=== PATIENT | female | born 1980 | race Caucasian/White ===

== ENCOUNTER 2016-03-13 11:40 | Emergency (ER) | payer SELFPAY ==
[2016-03-13 11:53] VITALS: TEMP 98.3; BMI 37.8
[2016-03-13] MEDS ORDERED: PROMETHAZINE 25 MG/ML VIAL IV ONE (12:08)
[2016-03-13] MEDS ORDERED: MORPHINE 4 MG/ML INJECTION IV ONE (12:08)
--- NOTE | 2016-03-13 12:12 | EDPRACDOC ---
- General Information Chief Complaint: Abdominal Pain Stated Complaint: ABDOMINAL PAIN Time Seen by Provider: 03/13/16 12:03 Information Source: Patient Mode Of Arrival: Car Home Medications: Home Medications Losartan/Hydrochlorothiazide [Losartan-Hctz 100-25 mg Tab] 1 each PO DAILY 01/26 Hydrocodone Bit/Acetaminophen [Hydrocodon-Acetaminophen 5-325] 1 - 2 tab PO Q6H PRN #20 tab 03/13/16 Allergies/Adverse Reactions: Allergies Allergy/AdvReac Type Severity Reaction Status Date / Time Penicillins Allergy Severe Rash-Genera Verified 03/13/16 11:53 lized - History of Present Illness Onset: 2+ WEEKS Pain Location: Reports: RUQ Pain Context: Reports: Spontaneous Pain Severity: Moderate Pain Quality: Reports: Aching, Burning, Colicky Pain Radiation: Reports: No Radiation : No (TUBAL) Female Abdominal History: Reports: Similar Pain (dx) (FOR YEARS: 2011 RUQ US WNL , HIDA 29%, NONOPERATIVE MANAGEMENT) Modifying Factors: improves with: Food Female Associated Signs & Symptoms: Reports: Nausea. Denies: Vomiting, Hematemesis, Anorexia, Diarrhea, Melena, Dysuria, Fever, Urgency, Hematuria, Chills Oral Intake: Normal Urinary Output: Normal ED Past Medical History - History Reviewed Yes Nurses notes reviewed and agree except as marked - Patient Medical History Neurological History: Denies: Cerebrovascular Accident Cardiac History: Reports: Hypertension Psychological History: Denies: Depression Systemic History: Denies: Diabetes Additional Past Surgical History: BTL - Social Medical History Smoking Status: Never smoker EDM Review of Systems - Review of Systems ROS Negative Except as Marked: Yes All systems reviewed and were negative except as marked - Physical Exam Constitutional: Alert (Awake), No apparent distress Oriented to: Time, Person, Place Last recorded Vital Signs: Last Vital Signs Temp 98.3 F 03/13/16 11:49 Pulse 85 03/13/16 11:49 Resp 18 03/13/16 11:49 BP 154/85 03/13/16 11:49 Pulse Ox 100 03/13/16 11:49 Oxygen Pulse Oxygen Saturation 100 O2 Device Room Air Oxygen Flow Rate Fraction of Inspired Oxygen ( FIO2) - HEENT Head: Normal ( normocephalic) Eye Exam: Normal (PERRL, EOMI, Sclera white). negative: Pale Conjunctiva, Scleral Icterus Oropharynx: Normal (Pharynx:Moist without exudate,Gums-no swelling). negative: Membranes Dry TMJ: Normal Nose: No Symptoms Reported (septum midline) Neck: Normal (FROM, trachea at midline) - Respiratory/Cardiovascular Respiratory: Normal - CTA (BBS clear to auscultation without adventitious sounds ) Cardiovascular: Normal (RRR without murmur, gallop or rub) - GI Auscultation: Normal (NABS) Palpation: Normal (Soft,No rebound or guarding, non distended) Tenderness: Non tender Erazo's Sign: Negative - Musculoskeletal Back: Normal (Non-Tender) Extremities: Normal (Normal tone, Pulses 2+ No cyanosis or edema, FROM) - Integumentary Skin: Normal, Warm, Dry Lymphatics: Normal (no adenopathy) - Neurologic Memory Impaired: Normal Motor Function: Normal (Normal tone, Pulses 2+ No cyanosis or edema, FROM) Cranial Nerve: Normal (CN II-X11 intact sensation, strength 5/5) Cerebellar: Normal Mood Description: Normal Perception: Normal - Results 03/13/16 12:00 03/13/16 12:00 WBC 8.1 xk/uL (3.8-10.8) 03/13/16 12:00 RBC 4.98 xM/uL (4.20-5.40) 03/13/16 12:00 Hgb 14.1 g/dL (12.0-16.0) 03/13/16 12:00 Hct 42.4 % (36-47) 03/13/16 12:00 MCV 85 fL (81-99) 03/13/16 12:00 MCH 28.3 pg (27-32) 03/13/16 12:00 MCHC 33.3 g/dl (33-36) 03/13/16 12:00 RDW 14.1 % (11.5-14.5) 03/13/16 12:00 Plt Count 315 xk/uL (130-400) 03/13/16 12:00 MPV 9.2 fL (7.4-10.4) 03/13/16 12:00 Neut % (Auto) Cancelled 03/13/16 12:00 Lymph % (Auto) Cancelled 03/13/16 12:00 Gove % (Auto) Cancelled 03/13/16 12:00 Eos % (Auto) Cancelled 03/13/16 12:00 Baso % (Auto) Cancelled 03/13/16 12:00 Absolute Neuts (auto) Cancelled 03/13/16 12:00 Absolute Lymphs (auto) Cancelled 03/13/16 12:00 Seg Neuts % (Manual) 42 % (45-76) L 03/13/16 12:00 Band Neutrophils % 13 % (0-5) H 03/13/16 12:00 Lymphocytes % (Manual) 23 % (17-44) 03/13/16 12:00 Monocytes % (Manual) 15 % (0-10) H 03/13/16 12:00 Eosinophils % (Manual) 6 % (0-5) H 03/13/16 12:00 Myelocytes % 1 % (0) H 03/13/16 12:00 Absolute Neutrophils 4.46 xk/uL (1.7-8.2) 03/13/16 12:00 Absolute Lymphocytes 1.86 xk/uL (0.65-4.75) 03/13/16 12:00 Vacuolated Neuts Few 03/13/16 12:00 Atypical Lymphocytes Occ 03/13/16 12:00 Platelet Estimate Norm (NORMAL) Large plts present (NORMAL) 03/13/16 12: 00 Platelet Estimate Norm (NORMAL) Large plts present (NORMAL) 03/13/16 12: 00 RBC Morphology 1+ macro 1+ aniso 03/13/16 12:00 RBC Morphology 1+ macro 1+ aniso 03/13/16 12:00 D-Dimer Quant (PE/DVT) 289 ng/mL (<500) 03/13/16 12:00 Sodium 143 mEq/L (137-146) 03/13/16 12:00 Potassium 3.9 mEq/L (3.5-5.1) 03/13/16 12:00 Chloride 105 mEq/L (98-107) 03/13/16 12:00 Carbon Dioxide 26 mMOL/L (22-33) 03/13/16 12:00 Anion Gap 16 mEq/L (8-16) 03/13/16 12:00 BUN 15 MG/DL (7-17) 03/13/16 12:00 Creatinine 0.80 MG/DL (0.52-1.04) 03/13/16 12:00 Estimated GFR (MDRD) > 60 mL/min (>=60) 03/13/16 12:00 Glucose 92 MG/DL (70-99) 03/13/16 12:00 Calculated Osmolality 276 MOs/Kg (270-290) 03/13/16 12:00 Calcium 9.3 MG/DL (8.4-10.2) 03/13/16 12:00 Total Bilirubin 0.5 MG/DL (0.2-1.3) 03/13/16 12:00 AST 37 IU/L (14-36) H 03/13/16 12:00 ALT 66 IU/L (9-52) H 03/13/16 12:00 Alkaline Phosphatase 55 IU/L (38-126) 03/13/16 12:00 Total Protein 7.8 G/DL (6.3-8.2) 03/13/16 12:00 Albumin 4.6 G/DL (3.5-5.0) 03/13/16 12:00 Lipase 127 U/L (23-300) 03/13/16 12:00 Urine Color Yellow 03/13/16 12:00 Urine Clarity Sl hzy 03/13/16 12:00 Urine pH 6.0 (5.0-8.0) 03/13/16 12:00 Ur Specific [place] 1.015 (1.003-1.035) 03/13/16 12:00 Urine Protein Neg (NEG/TRACE) 03/13/16 12:00 Urine Glucose (UA) Neg (NEGATIVE) 03/13/16 12:00 Urine Ketones Neg (NEGATIVE) 03/13/16 12:00 Urine Occult Blood Neg (NEG/TRACE) 03/13/16 12:00 Urine Nitrite Neg (NEGATIVE) 03/13/16 12:00 Urine Bilirubin Neg (NEGATIVE) 03/13/16 12:00 Urine Urobilinogen <2.0 MG/DL (0-1) 03/13/16 12:00 Ur Leukocyte Esterase Neg (NEGATIVE) 03/13/16 12:00 Urine RBC 0-2 (0-5) 03/13/16 12:00 Urine WBC 0-2 (0-5) 03/13/16 12:00 Ur Epithelial Cells 2+ 03/13/16 12:00 Urine Bacteria Few (NEG/FEW) 03/13/16 12:00 Urine Mucus Mod (NEG/OCC) H 03/13/16 12:00 Lab Results 03/13/16 03/13/16 03/13/16 12:00 12:00 12:00 WBC 8.1 RBC 4.98 Hgb 14.1 Hct 42.4 MCV 85 MCH 28.3 MCHC 33.3 RDW 14.1 Plt Count 315 MPV 9.2 Neut % (Auto) Cancelled Lymph % (Auto) Cancelled Gove % (Auto) Cancelled Eos % (Auto) Cancelled Baso % (Auto) Cancelled Absolute Neuts (auto) Cancelled Absolute Lymphs (auto) Cancelled Seg Neuts % (Manual) 42 L Band Neutrophils % 13 H Lymphocytes % (Manual) 23 Monocytes % (Manual) 15 H Eosinophils % (Manual) 6 H Myelocytes % 1 H Absolute Neutrophils 4.46 Absolute Lymphocytes 1.86 Vacuolated Neuts Few Atypical Lymphocytes Occ Platelet Estimate Large plts present RBC Morphology 1+ aniso D-Dimer Quant (PE/DVT) 289 Sodium Potassium Chloride Carbon Dioxide Anion Gap BUN Creatinine Estimated GFR (MDRD) Glucose Calculated Osmolality Calcium Total Bilirubin AST ALT Alkaline Phosphatase Total Protein Albumin Lipase Urine Color Yellow Urine Clarity Sl hzy Urine pH 6.0 Ur Specific [place] 1.015 Urine Protein Neg Urine Glucose (UA) Neg Urine Ketones Neg Urine Occult Blood Neg Urine Nitrite Neg Urine Bilirubin Neg Urine Urobilinogen <2.0 Ur Leukocyte Esterase Neg Urine RBC 0-2 Urine WBC 0-2 Ur Epithelial Cells 2+ Urine Bacteria Few Urine Mucus Mod H 03/13/16 12:00 WBC RBC Hgb Hct MCV MCH MCHC RDW Plt Count MPV Neut % (Auto) Lymph % (Auto) Gove % (Auto) Eos % (Auto) Baso % (Auto) Absolute Neuts (auto) Absolute Lymphs (auto) Seg Neuts % (Manual) Band Neutrophils % Lymphocytes % (Manual) Monocytes % (Manual) Eosinophils % (Manual) Myelocytes % Absolute Neutrophils Absolute Lymphocytes Vacuolated Neuts Atypical Lymphocytes Platelet Estimate RBC Morphology D-Dimer Quant (PE/DVT) Sodium 143 Potassium 3.9 Chloride 105 Carbon Dioxide 26 Anion Gap 16 BUN 15 Creatinine 0.80 Estimated GFR (MDRD) > 60 Glucose 92 Calculated Osmolality 276 Calcium 9.3 Total Bilirubin 0.5 AST 37 H ALT 66 H Alkaline Phosphatase 55 Total Protein 7.8 Albumin 4.6 Lipase 127 Urine Color Urine Clarity Urine pH Ur Specific [place] Urine Protein Urine Glucose (UA) Urine Ketones Urine Occult Blood Urine Nitrite Urine Bilirubin Urine Urobilinogen Ur Leukocyte Esterase Urine RBC Urine WBC Ur Epithelial Cells Urine Bacteria Urine Mucus - Diagnostic Imaging Abdomen Image interpreted by: Radiologist 03/13/16 13:37 Patient Name: SHANEL VINCENT LOC: ED : 1980 AGE: 36 Order Date:03/13/16 Date of Service:03/29 Report # [id number] Ord Physician: Abbie Simon MD Exam # [id number] Emergency Physician: Abbie Simon MD Exam(s): [id number] US/US GALLBLADDER-BILIARY (RUQ) CLINICAL DATA: Right upper quadrant pain EXAM: US ABDOMEN LIMITED - RIGHT UPPER QUADRANT COMPARISON: 12/02/2011 FINDINGS: Gallbladder: No gallstones or wall thickening visualized. No sonographic Erazo sign noted. Common bile duct: Diameter: 4 mm. Liver: Diffusely increased echogenicity likely due to diffuse hepatic steatosis. IMPRESSION: Stable diffuse hepatic steatosis. Normal gallbladder and biliary tree Electronically Signed By: Lars Mac M.D. On: 03/13/2016 13:28 Electronically Signed By: Lars Mac MD Electronically Signed Date/Time: [id number] Dictate Date/Time: 03/13/16 1326 Technologist: Vibha Rojo Transcribed By: Ingris Transcribed Date/Time: 03/13/16 1328 - Departure Disposition: Home Condition: Stable Final Diagnosis: Abdominal pain Qualifiers: Abdominal location: right upper quadrant Qualified Code(s): R10.11 - Right upper quadrant pain Instructions: Acute Abdominal Pain (ED), Non-pharmacological Pain Management Therapies for Adults (GEN), Abdominal Pain (ED) Education/Counseling Given To: Patient, Family Member Education/Counseling Given Regarding: Diagnosis, Treatment, Prognosis Referrals: Pablo Eastman MD [Primary Care Provider] - One Week Prescriptions: Hydrocodone Bit/Acetaminophen [Hydrocodon-Acetaminophen 5-325] 1 - 2 tab PO Q6H PRN #20 tab PRN Reason: Pain Forms: Excuse Note
[2016-03-13 12:16] LABS: MPV 9.2 fL (7.4-10.4)
[2016-03-13 12:28] LABS: LEUKOCYTES/URINE NEG (NEGATIVE); NITRITE/URINE NEG (NEGATIVE); RBC/URINE 0-2 (0-5); URINE OCCULT BLOOD NEG (NEG/TRACE); WBC/URINE 0-2 (0-5)
[2016-03-13 12:30] LABS: BLOOD UREA NITROGEN 15 MG/DL (7-17); CALCIUM 9.3 MG/DL (8.4-10.2); CALCULATED OSMOLALITY 276 MOs/Kg (270-290); CHLORIDE 105 mEq/L (98-107); GLUCOSE 92 MG/DL (70-99); SODIUM LEVEL 143 mEq/L (137-146); TOTAL PROTEIN 7.8 G/DL (6.3-8.2)
--- NOTE | 2016-03-13 13:31 | DIRPT ---
CLINICAL DATA: Right upper quadrant pain EXAM: US ABDOMEN LIMITED - RIGHT UPPER QUADRANT COMPARISON: 12/02/2011 FINDINGS: Gallbladder: No gallstones or wall thickening visualized. No sonographic Erazo sign noted. Common bile duct: Diameter: 4 mm. Liver: Diffusely increased echogenicity likely due to diffuse hepatic steatosis. IMPRESSION: Stable diffuse hepatic steatosis. Normal gallbladder and biliary tree Electronically Signed By: Lars Mac M.D. On: 03/13/2016 13:28
[2016-03-13 13:50] LABS: AUTOMATED BASOPHIL 0.6 % (0-2); AUTOMATED EOSINOPHIL 3.5 % (0-5); AUTOMATED LYMPH 40.2 % (17-44); AUTOMATED MONOCYTE 9.4 % (3-10); AUTOMATED NEUTROPHIL 46.3 % (45-76)
[2016-03-13 14:15] VITALS: BP 123/71; PULSE 62
== END 2016-03-13 14:14 | disposition home or self-care (01) ==
LOC: ED 11:40
DX: R10.11 Right upper quadrant pain (principal)
CPT/HCPCS: 36415; 76705; 80053; 81001; 81025; 83690; 85025; 85379; 96374; 96375; 99284; J2270; J2550